=== PATIENT | female | born 1980 | race Caucasian/White ===

== ENCOUNTER 2023-12-04 15:23 | Emergency (ER) | payer BC, SELFPAY ==
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
[2023-12-04 15:25] VITALS: BP 140/82; PULSE 114; RESP 16; TEMP 36.3; O2SAT 100
--- NOTE | 2023-12-04 16:43 | ECG_ITS ---
Test Date: 2023-12-04 17:45:02 Measurements Intervals [place] Rate: 73 P: 13 IN: 161 QRS: 39 QRSD: 97 T: 15 QT: 375 QTc: 415 Interpretive Statements SINUS RHYTHM WITH SINUS ARRHYTHMIA BORDERLINE ST-T WAVE ABNORMALITY- INFERIOR LEADS BORDERLINE ECG No previous ECG available for comparison Electronically Signed On 12-05-2023 07:29:35 CDT by Armando Kelly D.O.
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
[2023-12-04] MEDS: IBUPROFEN 600 MG TABLET PO (18:01)
[2023-12-04 18:05] VITALS: BP 113/71; PULSE 77; RESP 18; O2SAT 99
== END 2023-12-04 18:10 | disposition home or self-care (01) ==
PROVIDERS: Emergency Provider Family Medicine
DX: S20.219A Contusion of unspecified front wall of thorax, initial encounter (principal); S63.502A Unspecified sprain of left wrist, initial encounter; V87.7XXA Person injured in collision between other specified motor vehicles (traffic), initial encounter
CPT/HCPCS: 71046; 73110; 93005; 99284; A9270